=== PATIENT | female | born 1980 | race Caucasian/White ===

== ENCOUNTER 2023-01-28 15:22 | Outpatient (CLI) | payer OTHER, SELFPAY ==
--- NOTE | ~2023-01-28 | MM_ITS ---
EXAMINATION: MM screening [facility] w shlomo HISTORY: Screening mammogram TECHNIQUE: Craniocaudal and mediolateral oblique 3-D tomosynthesis images were obtained and synthetic 2-D images were generated. CAD analysis was submitted and interpreted. COMPARISON: No prior mammogram is available for comparison at this institution. BREAST PARENCHYMAL COMPOSITION: There are scattered areas of fibroglandular density. FINDINGS: There is no evidence of suspicious mass, calcification, or architectural distortion to sugg est malignancy in either breast. There has been no suspicious interval change. IMPRESSION: 1. No mammographic evidence of malignancy. 2. Recommend routine screening mammography in one year. BI-RADS Category 1: Negative Reviewed, dictated and finalized at location A.
== END 2023-01-28 15:23 | disposition home or self-care (01) ==
DX: Z12.31 Encounter for screening mammogram for malignant neoplasm of breast (principal)
CPT/HCPCS: 77063; 77067

== ENCOUNTER 2024-04-19 15:51 | Outpatient (CLI) | payer OTHER, SELFPAY ==
--- NOTE | ~2024-04-19 | MM_ITS ---
EXAMINATION: MM screening [facility] w shlomo HISTORY: Screening TECHNIQUE: Craniocaudal and mediolateral oblique 3-D tomosynthesis images were obtained and synthetic 2-D images were generated. CAD analysis was submitted and interpreted. COMPARISON: 01/28/2023 BREAST PARENCHYMAL COMPOSITION: Not dense: There are scattered areas of fibroglandular density. FINDINGS: There is no evidence of suspicious mass, calcification, or architectural distortion to sugg est malignancy in either breast. There has been no suspicious interval change. IMPRESSION: 1. No mammographic evidence of malignancy. 2. Recommend routine screening mammography in one year. BI-RADS Category 1: Negative Reviewed, dictated and finalized at location B.
== END 2024-04-19 15:52 | disposition home or self-care (01) ==
DX: Z12.31 Encounter for screening mammogram for malignant neoplasm of breast (principal)
CPT/HCPCS: 77063; 77067

== ENCOUNTER 2025-08-16 08:43 | Outpatient (CLI) | payer OTHER, SELFPAY ==
--- NOTE | ~2025-08-16 | MM_ITS ---
EXAMINATION: MM screening [facility] BI w shlomo HISTORY: Screening TECHNIQUE: Craniocaudal and mediolateral oblique 3-D tomosynthesis images were obtained and synthetic 2-D images were generated. CAD analysis was submitted and interpreted. COMPARISON: Comparison to multiple prior studies sequentially, with oldest reviewed study dated 01/28/2023. BREAST PARENCHYMAL COMPOSITION: Not dense: There are scattered areas of fibroglandular density. FINDINGS: There is no evidence of suspicious mass, calcification, or architectural distortion to suggest malignancy in either breast. There has been no suspicious interval change. IMPRESSION: 1. No mammographic evidence of malignancy. 2. Recommend routine screening mammography in one year. BI-RADS Category 1: Negative Reviewed, dictated and finalized at location B.
--- OUTSIDE RECORDS SUMMARY | 2025-08-16 08:59 | XMS_ITS | Clinical Summary ---
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 This disclosure is being madepursuant to the Care Everywhere program and may not contain all information available regarding this patient. Last updated 18.[facility] Allergies No known active allergies Medications * Be aware that medications may not be up to date on this document. Alwaysverify current medications with the patient. ibuprofen (MOTRIN) 600 MG tablet Take 1 Tab by mouth every 6 hours as needed for Pain. 120 Tab 1 3 Active buPROPion XL 24hr (Wellbutrin-XL) 300 MG tablet Take 1 (one) tablet by mouth once daily 90 tablet 4 5 Active norgestimate-et hinyl estradiol (Dillingham-Linyah) 0.25-35 MG-MCG tablet Take 1 (one) tablet by mouth once daily 84 tablet 4 5 Active buPROPion XL 24hr (Wellbutrin-XL) 300 MG tablet Take 1 (one) tablet by mouth once daily 30 tablet 5 Active naltrexone 8 MG capsule Take twice a day for a week, then once a day for a week, then stop 21 capsule 4 07/27/20 25 Discontinu ed(List Clean-Up) buPROPion XL 24hr (Wellbutrin-XL) 300 MG tablet TAKE 1 TABLET BY MOUTH DAILY 30 tablet 2 5 07/27/20 25 Discontinu ed(Reorder ) norgestimate-et hinyl estradiol (Dillingham-Linyah) 0.25-35 MG-MCG tablet TAKE 1 TABLET BY MOUTH ONCE DAILY 84 tablet 5 07/27/20 25 Discontinu ed(Reorder ) Active Problems Problem Noted Date Diagnosed Date Cervical cancer screening 10/28/2012 Overview (04/26/2024): 05/2010 pap negative 10/2011 pap negative. Plan next pap 10/2014 co-testing negative 01/31 normal pap neg hpv 03/06 nilm neg hpv 05/09 nilm neg hpv Supervision of normal first 12/17/2010 Overview (12/17/2010): O-/I/-/-/HIV neg/ GBS neg/ GCT 105 Encounters Date Type Department Care Team Description 08/06/2025 Refill [facility] [address] [facility] [address] [place] [address] Josefa oDwns MD MEDICATION REFILL 07/27/2025 9:15 AM CDT Office Visit [facility] [address] [facility] [address] [place] [phone] Josefa Downs MD Well woman exam with routine gynecological exam (Primary Dx) 07/27/2025 Travel 07/20/2025 Refill [facility] [address] [facility] [address] [place] [phone] Josefa Downs MD Refill Request 06/15/2025 Refill [facility] [address] [place] [phone] Josefa Downs MD Refill Request 06/03/2025 Refill [facility] [address] [place] [phone] Josefa Downs MD Refill Request from Last 3 Months Immunizations Immunization Administration Dates Next Due INFLUENZA VACCINE, TRIV. (AF LURIA, FLUZONE TRIVALENT; 6MO+) (IIV3) 08/22/2010 INFLUENZA VACCINE, QUADR. (F LUZONE; FLULAVAL; FLUARIX; AFLURIA QUADRIVALENT; 6MO+), 0.5 ML (IIV4) 09/10/2019 Rho D Immune Globulin 05/21/2013,12/18/2010 TDAP (7yrs+) 05/21/2013,12/19/2010 Family History Medical History Relation Name Comments CVA Maternal Grandfather Cancer Neg Hx Relation Name Status Comments Father Alive Maternal Grandfather Maternal Grandmother Alive Mother Alive Paternal Grandfather Paternal Grandmother Alive Social History Tobacco Use Types Packs/Day Years Used Date Smoking Tobacco: Never Smokeless Tobacco: Never Tobacco Cessation:Counseling Given: Not Answered Alcohol Use Standard Drinks/Week Comments No 0 (1 standard drink = 0.6 oz pur e alcohol) PHQ-2 Answer Date Recorded Patient Health Questionnaire-2 Score 0 07/26/2025 Comments No Sex and Gender Information Value Date Recorded Sex Assigned at Not on file 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 Gender Identity Not on file Sexual Orientation Not on file Last Filed Vital Signs Vital Sign Reading Time Taken Comments Blood Pressure 124/82 07/27/2025 9:04 AM CDT Pulse 86 02/18/2021 11:28 AM CDT Temperature 36.3 C (97.3 F) 02/18/2021 11:28 AM CDT Respiratory Rate 18 05/22/2013 7:30 AM CDT Oxygen Saturation 100% 05/20/2013 11: 00 PM CDT Inhaled Oxygen Concentration - - Weight 82.9 kg (182 lb 12.8 oz) 07/27/2025 9:04 AM CDT Height 167.6 cm (5' 6) 07/27/2025 9:04 AM CDT Body Mass Index 29.5 07/27/2025 9:04 AM CDT Plan of Treatment Health Maintenance Due Date Last Done Comments HIV SCREENING 1997 HEPATITIS C SCREENING 02/04/2000 HEPATITIS B VACCINE (1 of 3 - 19+ 3-dose series) 2001 HPV VACCINE (1 - 3-dose SCDM series) 2009 DTAP/TDAP/TD VACCINES (3 - T d or Tdap) 05/21/2023 05/21/2013, 12/19/2010 COVID-19 VACCINE (1 - 2023-2 5 season) 2025 INFLUENZA VACCINE (#1) 2025 9, 08/22/2010 SCREENING FOR DIABETES 01/15/2026 01/15/2023 MAMMOGRAM 04/19/2026 04/19/2024, 01/28/2023 LIPID TESTING 01/16/2028 01/15/2023, 07/14/2019 PAP with HPV 04/18/2029 04/18/2024, 02/18/2021 ZOSTER VACCINE (1 of 2) 02/09/2032 DEPRESSION SCREENING Completed 07/27/2025, 04/18/2024 HIB VACCINE Aged Out No longer eligi ble based on patient's age to complete this topic MENINGOCOCCAL (Group B) VACCINE SHARED DECISION-MAKING Aged Out No longer eligible based on patient's age to complete this topic MENINGOCOCCAL GROUPS A/C/Y/W VACCINE Aged Out No longer eligible b ased on patient's age to complete this topic PNEUMOCOCCAL VACCINE Aged Out No long er eligible based on patient's age to complete this topic Procedures Procedure Name Priority Date/Time Associated Diagnosis Comments MAMMOGRAM Routine 04/19/2024 8:08 AM CDT HPV DETECTION HIGH RISK SPEEDY Routine 04/18/2024 12:10 PM CDT Well woman exam with routine gynecological exam COMPREHENSIVE METABOLIC PANEL Routine 01/15/2023 7:55 AM OPEN 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 FURNACE 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 HELPER Well woman exam with routine gynecological exam LIPID PROFILE Routine 01/15/2023 7:55 AM OPEN HEARTH FURNACE OPERATOR HELPER Screening, lipid from Last 3 Months or Most Recently Relevant to Health Maintenance Results * MAMMOGRAM (04/19/2024 8:08 AM CDT) Anatomical Region Laterality Modality Other us Josefa Downs MD SCANNING ONLY Final Result * HPV DETECTION HIGH RISK SPEEDY (04/18/2024 12:10 PM CDT) Pathologist [facility] High Risk Human Papilloma Result Not detected Not detected 04/26/2024 9:33 AM CDT [facility] High Risk Human Papilloma Interp 04/26/2024 9:33 AM CDT [facility] Comment:High Risk Human Mitch lloma Virus was Not Detected. Pathology/Cytolo gy MISCELLANEOUS SAMPLES / Unknown 04/18/2024 12:10 PM CDT 04/19/2024 12:02 PM CDT Narrative [facility] - 04/26/2024 9:33 AM CDT Nucleic acid isolated from the specimen was analyzed with a nucleic acid amplification test (FDA approved Gen-Probe HPV Assay) to detect high risk human papilloma virus (Types: 16, 18, 31, 33, 35, 39, 45, 51, 52, 56, 58, 59, 66, and 68). The reference range is Not Detected. Comment: These test results should not be used as the sole basis for clinical assessment and treatment of patients. These results should always be correlated with other available data (cytology, histology, and clinical information). us Josefa Downs MD LAB - MICROBIOLOGY ORDERABLES Fi nal Result Performing Organization Address City/State/[facility] Co de Phone Number [facility] [address] [phone] * COMPREHENSIVE METABOLIC PANEL (01/15/2023 7:55 AM OPEN HEARTH FURNACE OPERATOR HELPER) Pathologist [facility] Glucose 86 65 - 99 mg/dL [facility] Comment: Fasting reference interval BUN 11 7 - 25 mg/dL [facility] Creatinine 0.72 0.50 - 0.99 mg/dL [facility] eGFR by Cystatin C 108 > OR = 60 mL/min/1. 73m2 [facility] Comment: The eGFR is based on the CKD-EPI 2020 equation. To calculate the new eGFR from a previous Creatinine or Cystatin C result, go to https://www.kidney.org/professionals/ kdoqi/gfr%5Fcalculator BUN/Creatinine Ratio NOT APPLICABLE 6 - 22 (calc) [facility] Sodium 140 135 - 146 mmol/L [facility] Potassium 4.5 3.5 - 5.3 mmol/L [facility] Chloride 106 98 - 110 mmol/L [facility] CO2 29 20 - 32 mmol/L [facility] Calcium 8.8 8.6 - 10.2 mg/dL [facility] Protein Total 6.4 6.1 - 8.1 g/dL [facility] Albumin 3.9 3.6 - 5.1 g/dL [facility] Globulin Total 2.5 1.9 - 3.7 g/dL (calc) [facility] Albumin/Globuli n Ratio 1.6 1.0 - 2.5 (calc) [facility] Bilirubin Total 0.4 0.2 - 1.2 mg/dL [facility] Alkaline Phosphatase 63 31 - 125 U/L [facility] AST 12 10 - 30 U/L [facility] ALT 13 6 - 29 U/L [facility] Comment: Test Performed at: [facility] [id number] [place] [phone] JORGE DEL CID MD Blood BLOOD SPECIMEN / Unknown 01/15/2023 7:55 AM OPEN HEARTH FURNACE OPERATOR HELPER 01/15/2023 7:56 AM OPEN HEARTH FURNACE OPERATOR HELPER Josefa Downs MD LAB - CHEMISTRY ORDERABLES Final Result [facility] [address] [place] [address] * (ABNORMAL) LIPID PROFILE (01/15/2023 7:55 AM OPEN HEARTH FURNACE OPERATOR HELPER) Cholesterol 176 <200 mg/dL [facility] HDL Cholesterol 56 > OR = 50 mg/dL [facility] Triglycerides 78 <150 mg/dL [facility] LDL Calculated 103(H) mg/dL (calc) [facility] Comment: Reference range: <100 Desirable range <100 mg/dL for primary prevention; <70 mg/dL for patients with CHD or diabetic patients with > or = 2 CHD risk factors. LDL-C is now calculated using the Breanna calculation, which is a validated novel method providing better accuracy than the Friedewald equation in the estimation of LDL-C. Calvin HINTON et al. JESSE. 2013;310(19): 0271-7804 (http://education.el?.[employer]/faq/OQL552) CHOL/HDLC RATIO 3.1 <5.0 (calc) [facility] Non HDL Cholesterol 120 <130 mg/dL (calc) [facility] Comment: For patients with diabetes plus 1 major ASCVD risk factor, treating to a non-HDL-C goal of <100 mg/dL (LDL-C of <70 mg/dL) is considered a therapeutic option. Test Performed at: [facility] [id number] [place] [address] JORGE DEL CID MD Blood BLOOD SPECIMEN / Unknown 01/15/2023 7:55 AM OPEN HEARTH FURNACE OPERATOR HELPER 01/15/2023 7:56 AM OPEN HEARTH FURNACE OPERATOR HELPER Josefa Downs MD LAB - CHEMISTRY ORDERABLES Final Result [facility] [address] [place] [address] from Last 3 Months or Most Recently Relevant to Health Maintenance Insurance [facility] Advance Directives * FULL RESUSCITATION (Latest Code Status on File) Date Activated Date Inactivated Comments 05/20/2013 10:21 AM 05/22/2013 12:53 PM * Full Code Date Activated Date Inactivated Comments 12/17/2010 9:52 AM 12/20/2010 3:05 AM
--- OUTSIDE RECORDS SUMMARY | 2025-08-16 08:59 | XMS_ITS | Encounter Summary ---
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 Name Role Phone Unavailable Primary Care Provider Unavailabl e Reason for Visit * Reason Onset Date Comments MEDICATION REFILL 05/15/2020 Encounter Details Date Type Department Care Team (Late st Contact Info) Description 05/15/2020 Refill [facility] [address] [place] [id number] Josefa Downs MD [address] [place] [address] [phone] MEDICATION REFILL Social History Tobacco Use Types Packs/Day Years Used Date Smoking Tobacco: Never Smokeless Tobacco: Never Alcohol Use Standard Drinks/Week Comments No 0 (1 standard drink = 0.6 oz pur e alcohol) Comments Unknown Sex and Gender Information Value Date Recorded Sex Assigned at Not on file 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
--- OUTSIDE RECORDS SUMMARY | 2025-08-16 08:59 | XMS_ITS | Encounter Summary ---
Author Organization [facility] Address [address] [facility] [address] [place] [address] Care Team Providers Care Hog Feeder Name Role Phone Unavailable Primary Care Provider Unavailabl e Reason for Visit * Reason Onset Date Comments Medication Issue 07/05/2024 Encounter Details Date Type Department Care Team (Late st Contact Info) Description 07/05/2024 Telephone [facility] - DIRECTOR OF ADULT EPILEPSY [address] [phone] Josefa Downs MD [address] [phone] Medication Issue Social History Tobacco Use Types Packs/Day Years Used Date Smoking Tobacco: Never Smokeless Tobacco: Never Alcohol Use Standard Drinks/Week Comments No 0 (1 standard drink = 0.6 oz pur e alcohol) PHQ-2 Answer Date Recorded Patient Health Questionnaire-2 Score 0 04/18/2024 Comments No Sex and Gender Information Value Date Recorded Sex Assigned at Not on file 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 The 8mg of naltrexone has to be compounded, because it only comes in 50mg tablets. Medication can be sent to any 24 hour pharmacy. Closest pharmacy to patient's home zip code: [address] [place] [address] Will send message to patient to see if okay to transfer to this pharmacy. * Telephone Encounter - Eliane Camacho - 07/05/2024 1:54 PM CDT naltrexone-buPROPion ER (Contrave) 8-90 MG tablet [facility] calling stating they don't compound medications this strength is compound only. CB: [phone] documented in this encounter Plan of Treatment Not on file documented as of this encounter Visit Diagnoses Not on filedocumented in this encounter
== END 2025-08-16 08:44 | disposition home or self-care (01) ==
LOC: ANHFOHIMG 08:45
DX: Z12.31 Encounter for screening mammogram for malignant neoplasm of breast (principal)
CPT/HCPCS: 77063; 77067